=== PATIENT | male | born 1930 | race Caucasian/White ===

== ENCOUNTER 2016-11-01 09:56 | Emergency (ER) | payer OTHER ==
[~2016-11-01] VITALS: Ht 167.6 cm; Wt 77.3 kg
[~2016-11-01 09:56] MED LIST: ASCORBIC ACID500 M3 PO; ASPIRIN81 M2 PO; BACTRIM,SEPT1 TABLET PO; CITALOPRAM HBR40 MG PO; DOXAZOSIN MESYLA8 MG PO; DOXYCYCLINE HY100 MG PO; FEROSUL325 MG PO; KEFLEX500 MG PO; LEVAQUIN500 MG PO; MOBIC7.5 MG PO; MOTRIN IB200 MG PO; NEXIUM40 MG PO; PERCOCET 5/31 TABLET PO; POTASSIUM-9999 MG PO; PRAVASTATIN SOD80 MG PO; TRAZODONE HCL50 MG PO; VITAMIN D-3 401 EACH PO
[2016-11-01 11:07] LABS: EOSINOPHIL (%) 1.9 % (0-5); EOSINOPHIL COUNT 0.1 K/uL (0-0.3); HEMATOCRIT 39.2 % (38.0-50.0); IMMATURE GRANULOCYTE (%) 0.3 % (0.0-0.7); INSTRUMENT ABS NEUTROPHIL CT 4.5 K/uL; LYMPHOCYTE COUNT 1.2 K/uL (1.0-2.8); MCH 30.2 PG (29.0-34.0); MCHC 33.9 G/DL (30.0-36.0); MCV 88.9 FL (86-99); MEAN PLAT.VOLUME 11.3 uM^3 (9.0-12.4); MONOCYTE (%) 7.3 % (3-12); MONOCYTE COUNT 0.5 K/uL (0-0.8); NEUTROPHIL (%) 71.6 % (45-76); NEUTROPHIL COUNT 4.5 K/uL (1.8-6.4); PLATELET COUNT 149 K/uL (156-360); RBC DIS.WIDTH-CV 12.8 % (11.8-14.6); RBC DIS.WIDTH-SD 41.9 % (39-53); RED BLOOD COUNT 4.41 M/uL (4.00-5.50); WHITE BLOOD COUNT 6.3 K/uL (4.1-10.2)
[2016-11-01 11:15] LABS: ADD MIUA? YES; BILIRUBIN NEGATIVE; BLOOD SMALL; COLOR YELLOW ((YELLOW)); GLUCOSE (STRIP) NEGATIVE; KETONES NEGATIVE; LEUKOCYTES NEGATIVE; NITRITE NEGATIVE; PROTEIN (STRIP) NEGATIVE; SPECIFIC GRAVITY 1.011 (1.000-1.030); UROBILINOGEN 0.2 MG/DL (0.2-1.0)
[2016-11-01 11:18] LABS: CHLORIDE 103 mEq/L (99-109); POTASSIUM 4.2 mEq/L (3.7-5.4); SODIUM 139 mEq/L (136-147)
[2016-11-01 11:20] LABS: GLUCOSE 98 mg/dL (70-99)
[2016-11-01 11:21] LABS: ANION GAP 12 MEQ/L (2-14)
[2016-11-01 11:24] LABS: GFR ESTIMATE (CALCULATED) > 59 mL/min/
[2016-11-01 11:25] LABS: UREA NITROGEN (BUN) 12 mg/dL (9-23)
[2016-11-01 11:28] LABS: BACTERIA RARE /HPF; EPITHELIAL CELLS NONE SEEN /HPF; MUCUS TRACE /LPF; RED BLOOD CELLS 0-5 /HPF (0-5); UCUL ADDED? NO; WHITE BLOOD CELLS 0-5 /HPF (0-5)
[2016-11-01] MEDS ORDERED: PERCOCET 5/31 TABLET PO (12:47)
[2016-11-01 12:59] VITALS: BP 160/87
== END 2016-11-01 13:01 | disposition home or self-care (01) ==
LOC: EME 09:56
PROVIDERS: Emergency Medicine
DX: R10.9 Unspecified abdominal pain (principal); E78.5 Hyperlipidemia, unspecified; I10 Essential (primary) hypertension; K21.9 Gastro-esophageal reflux disease without esophagitis; Z87.442 Personal history of urinary calculi; Z87.891 Personal history of nicotine dependence
CPT/HCPCS: 74176; 80048; 81003; 85025; 99281; 99284; J2270

== ENCOUNTER → 2017-11-10 | Outpatient (CLI) | payer OTHER ==
[~2017-11-10] VITALS: Ht 167.6 cm; Wt 77.1 kg
[~2017-11-10] MED LIST changes: +CARDURA8 MG PO; +STOOL SOFTENER100 MG PO
[2017-11-10 11:50] LABS: CHLORIDE 104 MEQ/L (99-109); GFR ESTIMATE (CALCULATED) > 59 mL/min/ (58.99-99999); GLUCOSE 102 mg/dL (70-99); POTASSIUM 4.2 MEQ/L (3.7-5.4); SODIUM 137 MEQ/L (136-147); UREA NITROGEN (BUN) 15 mg/dL (9-23)
== END | disposition home or self-care (01) ==
LOC: AMB 10:35
PROVIDERS: Anesthesiology
PROC: 0DJD8ZZ Inspection of Lower Intestinal Tract, Via Natural or Artificial Opening Endoscopic (ICD-10-PCS; principal; 2017-11-10)
DX: K57.30 Diverticulosis of large intestine without perforation or abscess without bleeding (principal); R19.4 Change in bowel habit; R14.0 Abdominal distension (gaseous); R19.7 Diarrhea, unspecified; K21.9 Gastro-esophageal reflux disease without esophagitis; Z86.010 Personal history of colon polyps; Z79.82 Long term (current) use of aspirin
CPT/HCPCS: 80048; J2405; J7643